=== PATIENT | female | born 1950 | race Caucasian/White ===

== ENCOUNTER 2018-04-04 05:36 | Day surgery (SDC) | payer OTHER ==
[~2018-04-04] VITALS: Ht 165.1 cm; Wt 83.9 kg
--- NOTE | ~2018-04-04 | O ---
Formerly [facility] [place] [address] OPERATIVE REPORT Name: RAMIRO GIRARD Room #: DEP [facility]..#: [id number] Admission: 04/04/18 Attend Phys: Jeanmarie Beatty MD Discharge: 04/04/18 Date of : 52 Report #: [id number] THIS REPORT FOR: //name// CC: Dr. Adam HEIN physician/PCP Reynaldo Beatty DATE OF SERVICE: 04/04/2018 PREOPERATIVE DIAGNOSIS: Right-sided nasolacrimal duct obstruction. 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 PROCEDURE: Right endoscopic balloon dacryocystoplasty. SURGEON: Jeanmarie Beatty M.D. CUT LACE MACHINE OPERATOR: None. ANESTHESIA: General. COMPLICATIONS: None. INDICATIONS FOR SURGERY: This pleasant 68-year-old woman presents with recurrent right-sided dacryostenosis. The current procedure is planned in order to attempt to reestablish patent lacrimal outflow in order to drain her tears adequately to improve her quality of vision and tear film. Informed consent was obtained to include but not limited to the potential risk for loss of vision, bleeding, infection, failure to improve the problem, the potential need for further surgery or treatment. DESCRIPTION OF PROCEDURE: The patient was taken to the operating room where general anesthesia was administered. The right medial canthal area and the right lateral wall of the nose were then generously infiltrated with Xylocaine with epinephrine mixed with Marcaine and Wydase. The patient was subsequently prepped and draped in the usual sterile fashion. The superior and inferior puncta were then dilated with a sharp punctum dilator. The puncta, while patent, or very shallow into the canaliculi. Superiorly and inferiorly, the canaliculi were severely stenosed. The superior system could not be traversed even to the common canaliculus. The inferior system was able to eventually be traversed to the common canaliculus, but the passage into the nasolacrimal duct proved to be even narrower than the canaliculi. The cottonoids were removed from the nose and the nasal vault inspected. There was [facility] [address] [place] [address] OPERATIVE REPORT Name: SHAJIRAMIRO L Room #: DEP [facility] M.R.#: [id number] Admission: 04/04/18 Attend Phys: Jeanmarie Beatty MD Discharge: 04/04/18 Date of : 52 Report #: [id number] a mild amount of nasal mucosal inflammation. The probe was passed through the nasolacrimal duct into the inferior meatus as confirmed visually. A 3 x 15 mm balloon was then passed through that same tract through the inferior canaliculus, but when the balloon was inflated. It would not hold pressure because of the extensive nature of the stenosis. The decision was made not to place a silicone tube. It was thought to potentially make the problem even worse for her. She was then cleaned and Maxitrol drops placed on the eye. The patient was subsequently transported to the recovery area having tolerated the procedure without any anesthetic complications, but without the surgical procedure being accomplished and without the surgery goal procedure being accomplished as previously anticipated because of the lack of placement of a silicone tube. <ELECTRONICALLY SIGNED> By: Jeanmarie Beatty MD 04/08/18 0616 [id number] Jeanmarie Beatty MD /nt
[~2018-04-04 05:36] MED LIST: ALLERCLEAR10 MG PO; ASPIR 8181 MG PO; CALCIUM 600 +1 EAC1 PO; FISH OIL 1,001000 M2 PO; GARLIC OIL1000 MG PO; MULTIVITAMINS1 EAC7 PO; OMEPRAZOLE40 MG PO; PROZAC10 MG PO; TYLENOL PM EX-1 EACH PO; VITAMIN D32000 UNI1 PO; VITAMINC500 PO
[2018-04-04 12:00] VITALS: BP 128/67
== END 2018-04-04 15:30 | disposition home or self-care (01) ==
LOC: TBA 05:36 → OR 05:36
DX: H04.551 Acquired stenosis of right nasolacrimal duct (principal); M79.7 Fibromyalgia; K21.9 Gastro-esophageal reflux disease without esophagitis; F32.9 Major depressive disorder, single episode, unspecified; Z90.710 Acquired absence of both cervix and uterus; Z87.891 Personal history of nicotine dependence; Z90.49 Acquired absence of other specified parts of digestive tract; Z98.890 Other specified postprocedural states; Z88.0 Allergy status to penicillin; Z79.899 Other long term (current) drug therapy
CPT/HCPCS: 50010; 50101; 50386; 50398; 51777; 55343; 56528; 62110; 62900; 70005